=== PATIENT | female | born 1955 | race Caucasian/White ===

== ENCOUNTER 2023-12-24 06:44 | Day surgery (SDC) | payer MEDICARE ==
[2023-12-24] VITALS (7 sets, daily range): BP systolic 102–126; BP diastolic 43–63; PULSE 51–59; TEMP 97–97.6
[~2023-12-24] VITALS: Ht 157.5 cm; Wt 73.1 kg
[2023-12-24] MEDS ORDERED: LR 1,000 ML IV ONE (06:45)
[2023-12-24] MEDS ORDERED: Famotidine 20 MG TAB PO SCH (07:00)
[2023-12-24] MEDS ORDERED: CYMBALTA 60MG60 MG PO (07:59)
[2023-12-24] MEDS ORDERED: HCTZ 25MG TAB25 MG PO (08:00)
[2023-12-24] MEDS ORDERED: LIPITOR20 MG PO (08:01)
[2023-12-24] MEDS ORDERED: PRILOSEC 20MG20 MG PO (08:02)
[2023-12-24] MEDS ORDERED: TENORMIN 5050 MG/TAB PO (08:02)
[2023-12-24] MEDS ORDERED: EPINEPHrine 1 MG/1 ML Ampule IR ONE (09:38)
[2023-12-24] MEDS ORDERED: Ondansetron 4 MG/2 ML VIAL IV PRN ×2 (11:00→11:15)
[2023-12-24] MEDS ORDERED: hydrALAZINE 20 MG/ML 1 ML VIAL IV PRN (11:00)
[2023-12-24] MEDS ORDERED: HYDROmorphone 1 MG/1 ML SYRINGE [PACU/SDC ONLY] IV PRN (11:00)
[2023-12-24] MEDS ORDERED: fentaNYL 50 MCG/ML 1 ML SYRINGE/VIAL [PACU/SDC ONLY] IV PRN (11:00)
[2023-12-24] MEDS ORDERED: CEPHALEXIN500 M1 PO (11:11)
[2023-12-24] MEDS ORDERED: PERCOCET 325 MG1 TA2 PO (11:11)
[2023-12-24] MEDS ORDERED: ULTRAM 50MG TAB50 MG PO (11:11)
[2023-12-24] MEDS ORDERED: oxyCODONE/Acetaminophen 5-325 MG TAB PO PRN (11:15)
[2023-12-24] MEDS ORDERED: Ketorolac 15 MG/ML VIAL IV ONE (11:45)
--- NOTE | 2023-12-24 12:10 | NUR ---
PATIENT RETURNS TO BAY 6 PER CART FROM PACU AND IS ALERT AND ORIENTED X3. DRESSING CLEAN AND DRY ON THE RIGHT SHOULDER. ABDUCTOR SLING ON THE RUE. IVF INFUSING. HOB ELEVATED AND ICE ON THE RIGHT SHOULDER. SPOUSE IN THE ROOM AND PATIENT IS SIPPING ON COFFEE. SIDERAILS UP X2 AND CALL LIGHT IN REACH.
--- NOTE | 2023-12-24 12:25 | NUR ---
RESTING WITH EYES CLOSED WHEN NOT DISTURBED. RIGHT ARM WARM TO TOUCH AND NAILBEDS PINK. SLING MAINTAINED
--- NOTE | 2023-12-24 12:40 | NUR ---
TALKING WITH SPOUSE. DENIES PAIN. STATES THAT THE RIGHT ARM REMAINS NUMB FROM THE BLOCK PRE-OP.
--- NOTE | 2023-12-24 12:55 | NUR ---
CONTINUES TO REST AND SPOUSE IN THE ROOM. DENIES ANY PAIN OR NAUSEA.
--- NOTE | 2023-12-24 13:10 | NUR ---
TOLERATED COFFEE. OFFERED SNACK AND REFUSES. STATES WILL EAT AT HOME.
--- NOTE | 2023-12-24 13:47 | NUR ---
MEDICATED WITH PERCOCET 5/325MG IN PREPARATION FOR RIDE HOME. STATES IS HAVING SOME SHOULDER SORENESS. ICE BAG MAINTAINED.
--- NOTE | 2023-12-24 14:03 | NUR ---
GIVEN DISMISSAL INSTRUCTIONS AND VOICES UNDERSTANDING OF THESE. ASSISTED WITH DRESSING. ABDUCTION SLING MAINTAINED. TOLERATES ACTIVITY WELL. SPOUSE IN ROOM AND VOICES UNDERSTANDING OF HOME CARES ALSO.
--- NOTE | 2023-12-24 14:10 | NUR ---
PATIENT DISCHARGED TO HOME DRIVEN BY SPOUSE PER PRIVATE VEHICLE WITH ABDUCTION SLING IN PLACE. TAKEN TO CAR PER WHEELCHAIR BY JOSE AND DISCHARGE INSTRUCTIONS ARE IN HAND.
== END 2023-12-24 14:10 | disposition home or self-care (01) ==
LOC: SDCO 06:44
DX: M75.101 Unspecified rotator cuff tear or rupture of right shoulder, not specified as traumatic (principal); S43.431A Superior glenoid labrum lesion of right shoulder, initial encounter; S46.211A Strain of muscle, fascia and tendon of other parts of biceps, right arm, initial encounter; M19.011 Primary osteoarthritis, right shoulder; M77.8 Other enthesopathies, not elsewhere classified
CPT/HCPCS: A4619; C1713; J0171; J1170; J1885; J3010; J7120